=== PATIENT | male | born 1965 | race Caucasian/White ===

== ENCOUNTER → 2024-01-15 | Outpatient (CLI) | payer MEDICAID, OTHER ==
[~2024-01-15] MED LIST: CYCL-1 PO; FLO0.4C PO; IBUP-1986 PO
== END | disposition home or self-care (01) ==
LOC: MRI 14:46
PROVIDERS: ATTEND Student in an Organized Health Care Education/Training Program
DX: S83.271A Complex tear of lateral meniscus, current injury, right knee, initial encounter (principal); S83.421A Sprain of lateral collateral ligament of right knee, initial encounter; M17.11 Unilateral primary osteoarthritis, right knee; M25.461 Effusion, right knee; M25.761 Osteophyte, right knee; X58.XXXA Exposure to other specified factors, initial encounter; Y93.89 Activity, other specified; Y92.89 Other specified places as the place of occurrence of the external cause; Y99.8 Other external cause status
CPT/HCPCS: 73721

== ENCOUNTER 2024-03-10 10:05 | Outpatient (CLI) | payer OTHER | END 2024-03-10 23:59 | disposition home or self-care (01) | LOC: MRI02 10:05 | PROVIDERS: ATTEND Student in an Organized Health Care Education/Training Program | DX: M75.01 Adhesive capsulitis of right shoulder (principal); M65.811 Other synovitis and tenosynovitis, right shoulder; M25.511 Pain in right shoulder | CPT/HCPCS: 73221 ==